=== PATIENT | female | born 1935 | race Caucasian/White ===

== ENCOUNTER → 2023-07-21 10:19 | Outpatient (REF) | payer MEDICARE, OTHER, SELFPAY ==
[2023-07-21 12:50] LABS: Urine Albumin Negative (Neg - Trace); Urine Bilirubin Negative (Negative); Urine Character Clear (Clear); Urine Color Yellow; Urine Glucose Negative (Negative); Urine Ketone Negative (Negative); Urine Leukocyte Negative (Negative); Urine Nitrite Negative (Negative); Urine Occult Blood Negative (Negative); Urine Specific Gravity 1.015 (<1.030); Urine Urobilinogen Negative (Neg - 1+)
[2023-07-21 13:07] LABS: % Basophils 0.8 % (0-2); % Eosinophils 7.2 % (0-6); % Immature Granulocytes 0.3 % (0-0.5); % Lymphocytes 19.5 % (20.5-51.1); % Monocytes 7.3 % (1.7-9.3); % Neutrophils 64.9 % (42.2-75.2); Absolute Basophils 0.1 10^3/uL (0-0.2); Absolute Eosinophils 0.5 10^3/uL (0-0.7); Absolute Lymphocytes 1.4 10^3/uL (1.2-3.4); Absolute Monocytes 0.5 10^3/uL (0.1-0.6); Absolute Neutrophils 4.8 10^3/uL (1.4-6.5); Hematocrit 41.7 % (37.0-47.0); Hemoglobin 13.7 g/dL (12.0-16.0); Mean Corp Hgb Conc. 32.9 g/dL (33.0-37.0); Mean Corpuscular Hgb 31.6 pg (27.0-31.0); Mean Corpuscular Volume 96.3 fL (81.0-99.0); Mean Platelet Volume 11.2 fL (7.4-10.4); Nucleated Red Blood Cells % 0 %; Platelet Count 279 10^3/uL (130-400); Red Blood Cell Count 4.33 10^6/uL (4.20-5.40); Red Cell Dist. Width 13.6 % (11.5-14.5); Reticulocyte Count 1.6 % (0.4-2.8); White Blood Cell Count 7.4 10^3/uL (4.8-10.8)
[2023-07-21 13:46] LABS: Erythrocyte Sed Rate 15 mm/hour (0-20)
[2023-07-21 13:56] LABS: Glycohemoglobin (HgbA1c) 5.8 % (4.0-5.6)
[2023-07-21 14:07] LABS: ALT (SGPT) 20 U/L (0-35); AST (SGOT) 30 U/L (14-36); Albumin 4.3 g/dl (3.5-5.0); Alkaline Phosphatase 62 U/L (38-126); Amylase 57 U/L (30-110); Blood Urea Nitrogen 9 mg/dl (7-17); Calcium 10.1 mg/dl (8.4-10.2); Carbon Dioxide 35 mmol/L (22-30); Chloride 100 mmol/L (98-107); Creatine Phosphokinase 38 U/L (30-135); GGTP < 10 U/L (12-43); Glucose 119 mg/dl (70-99); HDL Cholesterol 53 mg/dl; Iron 148 ug/dl (37-170); LDL Cholesterol, Calculated 18 mg/dl; Lipase 66 U/L (23-300); Magnesium 1.5 mg/dl (1.6-2.3); Potassium 5.2 mmol/L (3.5-5.1); Sodium 137 mmol/L (135-145); Total Bilirubin 0.6 mg/dl (0.2-1.3); Total Cholesterol 88 mg/dl (50-199); Total Protein 6.6 g/dl (6.3-8.2); Triglyceride 85 mg/dl (10-149); Uric Acid 4.9 mg/dl (2.5-6.2); Very Low Density Lipoprotein 17 mg/dl (0-30); eGFR > 60.00
[2023-07-21 14:17] LABS: Percent Saturation 37 % (20-50); Total Iron Binding Capacity 394 ug/dl (265-497)
[2023-07-21 15:25] LABS: Microalbumin, Random Urine < 0.6 mg/dl (0.6-1.7)
[2023-07-21 16:18] LABS: Free T4 1.53 ng/dl (0.78-2.19); Vitamin D, 25-OH*** 48.9 ng/mL (30-80)
[2023-07-21 16:31] LABS: TSH 0.89 uIU/ml (0.47-4.68)
[2023-07-21 16:34] LABS: Ferritin 13.2 ng/ml (11.1-264.0)
[2023-07-21 17:06] LABS: Folate > 20.0 ng/ml (2.76-20)
[2023-07-21 17:24] LABS: Vitamin B12 267 pg/ml (239-931)
[2023-07-21 18:29] LABS: C-Reactive Protein < 5.00 mg/L (0.0-10.00)
[2023-07-24 01:46] LABS: Zinc 78.8 ug/dL (60.0-120.0)
[2023-07-25 16:55] LABS: Rheumatoid Agglutinin Less Than 10 IU (<10 IU)
== END ==
LOC: HWLAB 10:19
PROVIDERS: ATTENDING PHYSICIAN Family Medicine
DX: E11.9 Type 2 diabetes mellitus without complications (principal); E78.5 Hyperlipidemia, unspecified; R94.5 Abnormal results of liver function studies; R74.8 Abnormal levels of other serum enzymes; E03.9 Hypothyroidism, unspecified; M10.9 Gout, unspecified; E60 Dietary zinc deficiency; E55.9 Vitamin D deficiency, unspecified; M12.9 Arthropathy, unspecified; D64.9 Anemia, unspecified; E53.8 Deficiency of other specified B group vitamins; E61.1 Iron deficiency; E83.42 Hypomagnesemia; N39.0 Urinary tract infection, site not specified
CPT/HCPCS: 36415; 80053; 80061; 81003; 82043; 82150; 82306; 82550; 82570; 82607; 82728; 82746; 82977; 83036; 83540; 83550; 83690; 83735; 84439; 84443; 84550; 84630; 85025; 85045; 85652; 86140; 86430

== ENCOUNTER → 2024-01-16 15:45 | Outpatient (REF) | payer MEDICARE, OTHER, SELFPAY | LOC: HWRCS 15:45 | PROVIDERS: ATTENDING PHYSICIAN Family Medicine | DX: R01.1 Cardiac murmur, unspecified (principal) | CPT/HCPCS: 93306 ==

== ENCOUNTER → 2024-04-03 09:39 | Outpatient (REF) | payer MEDICARE, OTHER, SELFPAY ==
[2024-04-03 12:31] LABS: % Basophils 0.6 % (0-2); % Eosinophils 4.3 % (0-6); % Immature Granulocytes 0.2 % (0-0.5); % Lymphocytes 16.9 % (20.5-51.1); Absolute Basophils 0.1 10^3/uL (0-0.2); Absolute Eosinophils 0.4 10^3/uL (0-0.7); Absolute Lymphocytes 1.5 10^3/uL (1.2-3.4); Absolute Monocytes 0.7 10^3/uL (0.1-0.6); Hemoglobin 13.9 g/dL (12.0-16.0); Mean Corp Hgb Conc. 32.3 g/dL (33.0-37.0); Mean Corpuscular Hgb 31.9 pg (27.0-31.0); Mean Corpuscular Volume 98.6 fL (81.0-99.0); Mean Platelet Volume 10.7 fL (7.4-10.4); Nucleated Red Blood Cells % 0 %; Platelet Count 294 10^3/uL (130-400); Red Blood Cell Count 4.36 10^6/uL (4.20-5.40); Red Cell Dist. Width 13.4 % (11.5-14.5); Reticulocyte Count 2.3 % (0.4-2.8); White Blood Cell Count 8.6 10^3/uL (4.8-10.8)
[2024-04-03 12:33] LABS: Urine Albumin Trace (Neg - Trace); Urine Bilirubin Negative (Negative); Urine Character Clear (Clear); Urine Color Yellow; Urine Glucose Negative (Negative); Urine Ketone Negative (Negative); Urine Leukocyte Negative (Negative); Urine Nitrite Negative (Negative); Urine Occult Blood Negative (Negative); Urine Urobilinogen Negative (Neg - 1+)
[2024-04-03 12:55] LABS: ALT (SGPT) 19 U/L (0-35); AST (SGOT) 29 U/L (14-36); Albumin 4.5 g/dl (3.5-5.0); Alkaline Phosphatase 58 U/L (38-126); Amylase 61 U/L (30-110); Blood Urea Nitrogen 10 mg/dl (7-17); Calcium 9.7 mg/dl (8.4-10.2); Carbon Dioxide 36 mmol/L (22-30); Chloride 96 mmol/L (98-107); Creatine Phosphokinase 33 U/L (30-135); GGTP 10 U/L (12-43); Glucose 129 mg/dl (70-99); HDL Cholesterol 53 mg/dl; Iron 143 ug/dl (37-170); LDL Cholesterol, Calculated 31 mg/dl; Lipase 81 U/L (23-300); Magnesium 1.6 mg/dl (1.6-2.3); Potassium 4.4 mmol/L (3.5-5.1); Sodium 139 mmol/L (135-145); Total Bilirubin 0.7 mg/dl (0.2-1.3); Total Cholesterol 104 mg/dl (50-199); Total Protein 6.8 g/dl (6.3-8.2); Triglyceride 103 mg/dl (10-149); Uric Acid 4.7 mg/dl (2.5-6.2); Very Low Density Lipoprotein 20 mg/dl (0-30); eGFR > 60.00
[2024-04-03 13:00] LABS: C-Reactive Protein < 5.00 mg/L (0.0-10.00)
[2024-04-03 13:04] LABS: Percent Saturation 36 % (20-50); Total Iron Binding Capacity 396 ug/dl (265-497)
[2024-04-03 13:18] LABS: Free T4 1.36 ng/dl (0.78-2.19); Vitamin D, 25-OH*** 38.6 ng/mL (30-80)
[2024-04-03 13:31] LABS: TSH 1.64 uIU/ml (0.47-4.68)
[2024-04-03 13:36] LABS: Ferritin 15.5 ng/ml (11.1-264.0)
[2024-04-03 14:07] LABS: Folate > 20.0 ng/ml (2.76-20); Vitamin B12 299 pg/ml (239-931)
[2024-04-03 14:27] LABS: Erythrocyte Sed Rate 16 mm/hour (0-20)
[2024-04-03 14:45] LABS: Microalbumin, Random Urine 3.3 mg/dl (0.6-1.7); Microalbumin/creatinine Ratio 21.5 mg/g
[2024-04-04 09:03] LABS: Glycohemoglobin (HgbA1c) 6.2 % (4.0-5.6)
[2024-04-05 13:31] LABS: Rheumatoid Agglutinin Less Than 10 IU (<10 IU)
== END ==
LOC: HWLAB 09:39
PROVIDERS: ATTENDING PHYSICIAN Family Medicine
DX: E11.9 Type 2 diabetes mellitus without complications (principal); E78.5 Hyperlipidemia, unspecified; R94.5 Abnormal results of liver function studies; R74.8 Abnormal levels of other serum enzymes; E03.9 Hypothyroidism, unspecified; M10.09 Idiopathic gout, multiple sites; E60 Dietary zinc deficiency; E55.9 Vitamin D deficiency, unspecified; M12.9 Arthropathy, unspecified; D64.9 Anemia, unspecified; E53.8 Deficiency of other specified B group vitamins; E61.1 Iron deficiency; E83.42 Hypomagnesemia; N39.0 Urinary tract infection, site not specified; S32.89XA Fracture of other parts of pelvis, initial encounter for closed fracture; M51.27 Other intervertebral disc displacement, lumbosacral region; S32.301A Unspecified fracture of right ilium, initial encounter for closed fracture; M16.4 Bilateral post-traumatic osteoarthritis of hip
CPT/HCPCS: 36415; 72110; 72220; 73523; 80053; 80061; 81003; 82043; 82150; 82306; 82550; 82570; 82607; 82728; 82746; 82977; 83036; 83540; 83550; 83690; 83735; 84439; 84443; 84550; 84630; 85025; 85045; 85652; 86140; 86430

== ENCOUNTER → 2024-06-06 13:26 | Outpatient (REF) | payer MEDICARE, OTHER, SELFPAY | LOC: HWRAD 13:26 | PROVIDERS: ATTENDING PHYSICIAN Anesthesiology; FAMILY PHYSICIAN Family Medicine | DX: M54.16 Radiculopathy, lumbar region (principal) | CPT/HCPCS: 72131 ==

== ENCOUNTER → 2024-07-25 09:18 | Outpatient (REF) | payer MEDICARE, OTHER, SELFPAY | LOC: RAD 09:18 | PROVIDERS: ATTENDING PHYSICIAN Family Medicine | DX: I73.9 Peripheral vascular disease, unspecified (principal); I65.29 Occlusion and stenosis of unspecified carotid artery; I65.23 Occlusion and stenosis of bilateral carotid arteries | CPT/HCPCS: 93880; 93922 ==

== ENCOUNTER → 2025-01-03 09:49 | Outpatient (REF) | payer MEDICARE, OTHER, SELFPAY ==
[2025-01-03 12:42] LABS: Hematocrit 41.0 % (37.0-47.0); Hemoglobin 13.4 g/dL (12.0-16.0); Mean Corp Hgb Conc. 32.7 g/dL (33.0-37.0); Mean Corpuscular Volume 97.9 fL (81.0-99.0); Nucleated Red Blood Cells % 0 %; Platelet Count 261 10^3/uL (130-400); Red Cell Dist. Width 13.7 % (11.5-14.5)
[2025-01-03 12:45] LABS: ALT (SGPT) 16 U/L (0-35); AST (SGOT) 25 U/L (14-36); Albumin 4.4 g/dl (3.5-5.0); Alkaline Phosphatase 47 U/L (38-126); Blood Urea Nitrogen 11 mg/dl (7-17); Calcium 9.9 mg/dl (8.4-10.2); Carbon Dioxide 35 mmol/L (22-30); Chloride 101 mmol/L (98-107); Glucose 130 mg/dl (70-99); HDL Cholesterol 47 mg/dl; LDL Cholesterol, Calculated 37 mg/dl; Magnesium 1.6 mg/dl (1.6-2.3); Potassium 4.9 mmol/L (3.5-5.1); Sodium 140 mmol/L (135-145); Total Protein 6.7 g/dl (6.3-8.2); Very Low Density Lipoprotein 14 mg/dl (0-30); eGFR > 60.00
[2025-01-03 12:57] LABS: Glycohemoglobin (HgbA1c) 5.8 % (4.0-5.6)
[2025-01-03 13:10] LABS: Microalb - Urine Creatinine 119.700 mg/dl
[2025-01-03 13:15] LABS: TSH 1.85 uIU/ml (0.47-4.68)
[2025-01-03 13:19] LABS: Microalbumin, Random Urine 1.5 mg/dl (0.6-1.7)
== END ==
LOC: HWLAB 09:49
PROVIDERS: ATTENDING PHYSICIAN Student in an Organized Health Care Education/Training Program
DX: E11.9 Type 2 diabetes mellitus without complications (principal); E03.9 Hypothyroidism, unspecified; D64.9 Anemia, unspecified; R79.0 Abnormal level of blood mineral; E78.5 Hyperlipidemia, unspecified
CPT/HCPCS: 36415; 80053; 80061; 82043; 82570; 83036; 83735; 84443; 85025